=== PATIENT | male | born 1950 | race Caucasian/White ===

== ENCOUNTER 2017-12-04 01:54 | Day surgery (SDC) | payer MEDICARE, OTHER ==
[~2017-12-04] VITALS: Ht 154.9 cm; Wt 80.3 kg
[~2017-12-04 01:54] MED LIST: ATOR40TA24 PO; CELE-1 PO; CHOL10005 PO; CLOB15CR22 TP; CLOB15OI16 TP; IBAN150T6 PO; MV M PO; ROS10 PO; SILD100T59 PO; VARD20TA31 PO
[2017-12-04] MEDS ORDERED: NORMOSOL R SOLN(*) 1000 ML BAG 1,000 ML IV PRN (06:30)
[2017-12-04] MEDS ORDERED: LIDOCAINE/SOD BICARB 8.4% SYR ID ONE (06:30)
[2017-12-04 06:39] VITALS: BP 103/84
[2017-12-04] MEDS ORDERED: PROPOFOL EMUL(*) 10MG/ML 20 ML 40 ML ONE (07:17)
[2017-12-04 07:57] VITALS: BP 99/62
[2017-12-04 08:00] VITALS: BP 97/71
[2017-12-04 08:15] VITALS: BP 112/45
[2017-12-04 08:33] VITALS: BP 108/79
[2017-12-04 08:34] VITALS: BP 107/76
== END 2017-12-04 08:48 | disposition home or self-care (01) ==
LOC: OR 01:54
PROVIDERS: ATTEND Internal Medicine
DX: Z12.11 Encounter for screening for malignant neoplasm of colon (principal); K57.30 Diverticulosis of large intestine without perforation or abscess without bleeding
CPT/HCPCS: 00812; G0121; J2704